=== PATIENT | male | born 2000 | race Caucasian/White ===

== ENCOUNTER 2019-12-14 19:13 | Emergency (ER) | payer OTHER ==
[~2019-12-14] VITALS: Ht 167.6 cm; Wt 61.2 kg
== END 2019-12-14 22:06 | disposition home or self-care (01) ==
LOC: ER 19:13
DX: K29.60 Other gastritis without bleeding (principal)

== ENCOUNTER 2022-04-23 21:39 | Emergency (ER) | payer OTHER ==
[~2022-04-23] VITALS: Ht 167.6 cm; Wt 77.1 kg
[2022-04-23] MEDS ORDERED: CLOTRIMAZOLE-BE15 G1 TOP (22:19)
[2022-04-23] MEDS ORDERED: TERBINAFINE HC250 MG PO (22:19)
== END 2022-04-23 22:26 | disposition home or self-care (01) ==
LOC: ER 21:39
DX: B35.6 Tinea cruris (principal)

== ENCOUNTER 2023-02-18 21:11 | Emergency (ER) | payer OTHER ==
[~2023-02-18] VITALS: Ht 167.6 cm; Wt 70.3 kg
[~2023-02-18 21:11] MED LIST: CLOTRIMAZOLE-BE15 G1 TOP; TERBINAFINE HC250 MG PO
== END 2023-02-18 23:50 | disposition home or self-care (01) ==
LOC: ER 21:11
DX: J06.9 Acute upper respiratory infection, unspecified (principal); R53.81 Other malaise; Z20.822 Contact with and (suspected) exposure to COVID-19

== ENCOUNTER 2023-07-31 18:59 | Emergency (ER) | payer OTHER ==
[~2023-07-31] VITALS: Ht 167.6 cm; Wt 72.6 kg
[2023-07-31 20:45] LABS: HEMATOCRIT 41.5 % (39.0-48.0); HEMOGLOBIN 14.2 g/dL (13-16.00); MEAN CELL VOLUME 87.3 fL (80.0-100.00); MEAN CORPUSCULAR HGB CONC 34.3 g/dl (32.0-36.0); PLATELET COUNT 212 K/uL (150-450); RED BLOOD COUNT 4.75 M/uL (4.00-6.00); RED CELL DISTRIBUTION WIDTH 13.1 % (11.5-14.5)
== END 2023-07-31 21:47 | disposition home or self-care (01) ==
LOC: ER 18:59
PROVIDERS: General Practice
DX: J06.9 Acute upper respiratory infection, unspecified (principal); Z20.822 Contact with and (suspected) exposure to COVID-19